=== PATIENT | male | born 1960 | race African-American/Black ===

== ENCOUNTER 2018-08-04 07:57 | Emergency (ER) | payer MEDICARE, MEDICAID ==
[~2018-08-04] VITALS: Ht 193 cm; Wt 80.0 kg
[~2018-08-04 07:57] MED LIST: AMLO2.5T45 PO; ATOR10TA PO; TRAM50TA3 PO
[2018-08-04] MEDS ORDERED: HYDROCODONE/ACETAMINOPHEN 5/325MG TABLET PO ONE (09:15)
[2018-08-04 10:33] VITALS: BP 131/92
== END 2018-08-04 10:35 | disposition home or self-care (01) ==
LOC: ER 09:48
DX: S80.02XA Contusion of left knee, initial encounter (principal); S90.32XA Contusion of left foot, initial encounter; J44.9 Chronic obstructive pulmonary disease, unspecified; I10 Essential (primary) hypertension; F17.200 Nicotine dependence, unspecified, uncomplicated; Z96.649 Presence of unspecified artificial hip joint; W18.39XA Other fall on same level, initial encounter; Y93.89 Activity, other specified; Y92.89 Other specified places as the place of occurrence of the external cause; Y99.8 Other external cause status; Z98.890 Other specified postprocedural states
CPT/HCPCS: 73700; 99284; L1830

== ENCOUNTER 2020-05-27 11:33 | Inpatient (IN) | payer MEDICARE, MEDICAID ==
[~2020-05-27] VITALS: Ht 195.6 cm; Wt 84.4 kg
[~2020-05-27 11:33] MED LIST changes: +ASPI-1160 PO; -ATOR10TA PO; +UMEC1DIS IH
[2020-05-27] MEDS ORDERED: MORPHINE SULFATE 4 MG/ML CPJ (NOT FOR IM USE) IV STA (12:13)
[2020-05-27] MEDS ORDERED: ONDANSETRON HCL 4MG/2ML INJ IV STA (12:13)
[2020-05-27] MEDS ORDERED: METRONIDAZOLE 500 MG PREMIX 100 ML IV ONE (14:00)
[2020-05-27] MEDS ORDERED: MORPHINE SULFATE 4 MG/ML CPJ (NOT FOR IM USE) IV ONE (14:00)
[2020-05-27] MEDS ORDERED: CEFTRIAXONE 2 G PREMIX 50 ML IV ONE (14:00)
[2020-05-27 14:22] LABS: BASOPHILS % 0.5 % (0.0-2.0); EOSINOPHILS % 0.8 % (0.0-5.0); HEMATOCRIT. 45.3 % (42.0-52.0); HEMOGLOBIN. 15.6 g/dL (14.0-18.0); LYMPHOCYTES % 16.3 % (20.0-50.0); MEAN CORPUSCULAR HEMOGLOBIN 35.9 pg (28.0-32.0); MEAN CORPUSCULAR VOLUME 104.4 fL (80.0-94.0); MEAN PLATELET VOLUME 6.8 fl (7.4-10.4); NEUTROPHILS % 71.4 % (40.0-76.0); PLATELET 444 x1000/uL (130-400); RED BLOOD CELL COUNT 4.34 mill/uL (4.7-6.1)
[2020-05-27 14:28] LABS: CHLORIDE 104 mEq/L (98-107)
[2020-05-27 14:30] LABS: INR 1.1; PROTHROMBIN TIME 11.5 sec (9.6-11.0)
[2020-05-27 15:13] LABS: CLARITY URINE CLEAR (CLEAR); COLOR URINE DARK YELLOW (YELLOW); KETONES URINE NEGATIVE (NEGATIVE); LEUKOCYTE ESTERASE URINE NEGATIVE (NEGATIVE); NITRITE URINE NEGATIVE (NEGATIVE); OCCULT BLOOD URINE NEGATIVE (NEGATIVE); PROTEIN URINE NEGATIVE (NEGATIVE); SPECIFIC GRAVITY URINE 1.029 (1.005-1.030)
[2020-05-27] MEDS ORDERED: ONDANSETRON HCL 4MG/2ML INJ IV PRN ×2 (15:45→18:30)
[2020-05-27] MEDS ORDERED: MORPHINE SULFATE 4 MG/ML CPJ (NOT FOR IM USE) IV PRN ×2 (15:45→19:15)
[2020-05-27] MEDS ORDERED: HYDROCODONE/ACETAMINOPHEN 5/325MG TABLET PO PRN (15:45)
[2020-05-27] MEDS ORDERED: MORPHINE SULFATE 2 MG/ML CPJ (NOT FOR IM USE) IV PRN ×3 (15:45→19:15)
[2020-05-27] MEDS ORDERED: ROCURONIUM BROMIDE 10MG/ML VIAL 5ML IV ONE (16:02)
[2020-05-27] MEDS ORDERED: FENTANYL CITRATE/PF 50MCG/ML 2ML VIAL ONE (16:02)
[2020-05-27] MEDS ORDERED: PROPOFOL 200MG/20ML VIAL IV ONE (16:03)
[2020-05-27] MEDS ORDERED: MIDAZOLAM HCL 2 MG/2 ML VIAL ONE (16:03)
[2020-05-27] MEDS ORDERED: LIDOCAINE HCL/PF 1% 10 MG/ML 5ML VIAL ONE (16:04)
[2020-05-27] MEDS ORDERED: METOCLOPRAMIDE HCL 10MG/2ML VIAL ONE (16:06)
[2020-05-27] MEDS ORDERED: ONDANSETRON HCL 4MG/2ML INJ ONE (16:06)
[2020-05-27] MEDS ORDERED: LORAZEPAM 2MG/ML CPJ IV PRN (16:15)
[2020-05-27] MEDS ORDERED: IPRATROPIUM/ALBUTEROL 0.5-3(2.5)MG/3ML NEB NEB PRN (16:15)
[2020-05-27] MEDS ORDERED: ACETAMINOPHEN 650MG SUPP PR PRN (16:15)
[2020-05-27] MEDS ORDERED: BUPIVACAINE HCL 0.5% (5MG/ML) 50ML ONE (16:35)
[2020-05-27] MEDS ORDERED: CEFAZOLIN SODIUM 1000MG/VIAL ONE (17:05)
[2020-05-27] MEDS ORDERED: GLYCOPYRROLATE 0.2 MG/ML 2ML VIAL ONE (17:06)
[2020-05-27] MEDS ORDERED: SKIN ADHESIVE 0.7 GM EA TOP ONE (17:46)
[2020-05-27] MEDS ORDERED: HYDROMORPHONE HCL/PF 2MG/ML CPJ ONE (18:25)
[2020-05-27] MEDS ORDERED: DIPHENHYDRAMINE 50MG/ML VIAL IV PRN (18:30)
[2020-05-27] MEDS: MEPERIDINE HCL/PF 25MG/ML CPJ IV PRN ×2 (18:30→18:54)
[2020-05-27] MEDS: HYDROMORPHONE HCL/PF 2MG/ML CPJ IV PRN ×4 (18:38→19:24)
[2020-05-27] MEDS ORDERED: DEXT 5%/0.45% NACL KCL 20MEQ/L 1,000 ML IV SCH (19:00)
[2020-05-27] MEDS ORDERED: LEVOFLOXACIN 500MG PREMIX 100 ML IV SCH (19:15)
[2020-05-27] MEDS ORDERED: MEPERIDINE HCL/PF 25MG/ML CPJ IV PRN ×2 (19:45)
[2020-05-27 20:00] VITALS: BP 138/85
[2020-05-27] MEDS: DIPHENHYDRAMINE 50MG/ML VIAL IV PRN (20:13)
[2020-05-27] MEDS: MORPHINE SULFATE 4 MG/ML CPJ (NOT FOR IM USE) IV PRN (22:28)
[2020-05-27] MEDS: DEXT 5%/0.45% NACL KCL 20MEQ/L 1,000 ML IV SCH (22:29)
[2020-05-28] VITALS (7 sets, daily range): BP systolic 108–146; BP diastolic 69–90
[2020-05-28] MEDS: PIPERACILLIN/TAZOBACTAM 3.375 G in DEXT 5% WATER 100 ML IV SCH ×5 (00:13→17:16)
[2020-05-28] MEDS: DEXT 5%/0.45% NACL KCL 20MEQ/L 1,000 ML IV SCH (00:14)
[2020-05-28 00:16] LABS: HEMATOCRIT. 42.2 % (42.0-52.0); HEMOGLOBIN. 14.3 g/dL (14.0-18.0); MEAN CORPUSCULAR HEMOGLOBIN 35.8 pg (28.0-32.0); MEAN CORPUSCULAR VOLUME 105.4 fL (80.0-94.0); MEAN PLATELET VOLUME 6.5 fl (7.4-10.4); PLATELET 395 x1000/uL (130-400)
[2020-05-28 00:24] LABS: PLATELET ESTIMATE NORMAL
[2020-05-28] MEDS: MORPHINE SULFATE 4 MG/ML CPJ (NOT FOR IM USE) IV PRN ×2 (00:53→04:07)
[2020-05-28] MEDS: DIPHENHYDRAMINE 50MG/ML VIAL IV PRN (02:43)
[2020-05-28 06:25] LABS: BASOPHILS % 0.2 % (0.0-2.0); HEMATOCRIT. 39.8 % (42.0-52.0); HEMOGLOBIN. 13.5 g/dL (14.0-18.0); LYMPHOCYTES % 11.3 % (20.0-50.0); MEAN CORPUSCULAR HEMOGLOBIN 35.5 pg (28.0-32.0); MEAN PLATELET VOLUME 6.9 fl (7.4-10.4); NEUTROPHILS % 81.5 % (40.0-76.0); PLATELET 392 x1000/uL (130-400); RED BLOOD CELL COUNT 3.79 mill/uL (4.7-6.1); RED CELL DISTRIBUTION WIDTH 12.8 % (11.6-14.6)
[2020-05-28 06:35] LABS: CHLORIDE 107 mEq/L (98-107)
[2020-05-28 06:52] LABS: T4 FREE 1.54 ng/dL (0.76-1.46)
[2020-05-28] MEDS ORDERED: HYDROMORPHONE HCL/PF 2MG/ML CPJ IV PRN (08:15)
[2020-05-28] MEDS ORDERED: ACETAMINOPHEN 325MG TABLET PO PRN (08:15)
[2020-05-28] MEDS: FAMOTIDINE 20MG/2ML VIAL IV SCH (09:04)
[2020-05-28] MEDS: ENOXAPARIN 40MG/0.4ML SYR SUBCUT SCH (09:04)
[2020-05-28] MEDS: HYDROMORPHONE HCL/PF 2MG/ML CPJ IV PRN ×2 (09:10→21:37)
[2020-05-28] MEDS: NICOTINE 7MG PATCH TD SCH (14:24)
[2020-05-28 18:12] LABS: CHLORIDE 102 mEq/L (98-107)
[2020-05-29] VITALS: BP 118/77
[2020-05-29] MEDS: PIPERACILLIN/TAZOBACTAM 3.375 G in DEXT 5% WATER 100 ML IV SCH ×4 (00:07→17:35)
[2020-05-29 04:00] VITALS: BP 103/65
[2020-05-29 06:30] LABS: *AMPHETAMINES SCREEN URINE NEGATIVE (NEGATIVE); *BARBITURATES SCREEN URINE NEGATIVE (NEGATIVE); *BENZODIAZEPINES SCREEN URINE PRESUMTIVE POSITIVE (NEGATIVE); *COCAINE SCREEN URINE NEGATIVE (NEGATIVE); METHADONE URINE SCREEN NEGATIVE (NEGATIVE); OPIATES URINE SCREEN PRESUMTIVE POSITIVE (NEGATIVE); PHENCYCLIDINE URINE SCREEN NEGATIVE (NEGATIVE)
[2020-05-29 06:31] LABS: CANNABINOID URINE SCREEN NEGATIVE (NEGATIVE)
[2020-05-29 06:56] LABS: BASOPHILS % 0.3 % (0.0-2.0); EOSINOPHILS % 1.4 % (0.0-5.0); HEMATOCRIT. 35.9 % (42.0-52.0); HEMOGLOBIN. 12.5 g/dL (14.0-18.0); LYMPHOCYTES % 16.6 % (20.0-50.0); MEAN CORPUSCULAR HEMOGLOBIN 36.5 pg (28.0-32.0); MEAN CORPUSCULAR VOLUME 104.7 fL (80.0-94.0); MEAN PLATELET VOLUME 6.8 fl (7.4-10.4); MONOCYTES % 7.7 % (2.0-8.0); PLATELET 375 x1000/uL (130-400); RED BLOOD CELL COUNT 3.43 mill/uL (4.7-6.1); RED CELL DISTRIBUTION WIDTH 12.7 % (11.6-14.6)
[2020-05-29 07:02] LABS: CHLORIDE 101 mEq/L (98-107)
[2020-05-29] MEDS: FAMOTIDINE 20MG/2ML VIAL IV SCH (09:01)
[2020-05-29] MEDS: NICOTINE 7MG PATCH TD SCH (09:01)
[2020-05-29] MEDS: ENOXAPARIN 40MG/0.4ML SYR SUBCUT SCH (09:01)
[2020-05-29] MEDS: HYDROMORPHONE HCL/PF 2MG/ML CPJ IV PRN ×3 (09:02→15:33)
[2020-05-29] MEDS: DEXT 5%/0.45% NACL KCL 20MEQ/L 1,000 ML IV SCH ×3 (12:08→21:54)
[2020-05-29 20:00] VITALS: BP 135/82
[2020-05-30] VITALS: BP 141/87
[2020-05-30] MEDS: PIPERACILLIN/TAZOBACTAM 3.375 G in DEXT 5% WATER 100 ML IV SCH ×5 (00:15→23:22)
[2020-05-30] MEDS: HYDROCODONE/ACETAMINOPHEN 5/325MG TABLET PO PRN ×2 (00:15→23:42)
[2020-05-30 04:53] VITALS: BP 140/89
[2020-05-30 05:45] LABS: CHLORIDE 104 mEq/L (98-107)
[2020-05-30 05:48] LABS: HEMATOCRIT. 37.7 % (42.0-52.0); HEMOGLOBIN. 13.1 g/dL (14.0-18.0); MEAN CORPUSCULAR VOLUME 103.5 fL (80.0-94.0); PLATELET 390 x1000/uL (130-400); RED BLOOD CELL COUNT 3.64 mill/uL (4.7-6.1); RED CELL DISTRIBUTION WIDTH 12.7 % (11.6-14.6)
[2020-05-30 05:54] LABS: PHOSPHORUS 1.9 mg/dL (2.5-4.9)
[2020-05-30] MEDS: HYDROMORPHONE HCL/PF 2MG/ML CPJ IV PRN ×4 (05:54→20:14)
[2020-05-30] MEDS: DEXT 5%/0.45% NACL KCL 20MEQ/L 1,000 ML IV SCH ×3 (08:00→23:49)
[2020-05-30] MEDS: NICOTINE 7MG PATCH TD SCH (08:56)
[2020-05-30] MEDS: ENOXAPARIN 40MG/0.4ML SYR SUBCUT SCH (08:56)
[2020-05-30] MEDS: FAMOTIDINE 20MG/2ML VIAL IV SCH (08:57)
[2020-05-30] MEDS ORDERED: HYDR-4001 MT ×2 (12:49→12:53)
[2020-05-30] MEDS ORDERED: LEVO500T2 MT (12:49)
[2020-05-30] MEDS ORDERED: AMOX1TAB16 MT (12:49)
[2020-05-30] MEDS ORDERED: BISACODYL 10MG SUPP PR NR (13:15)
[2020-05-30 14:52] LABS: PLATELET ESTIMATE NORMAL
[2020-05-30 20:00] VITALS: BP 146/95
[2020-05-30] MEDS: ONDANSETRON HCL 4MG/2ML INJ IV PRN (20:28)
[2020-05-31] VITALS: BP 144/98
[2020-05-31] MEDS: PIPERACILLIN/TAZOBACTAM 3.375 G in DEXT 5% WATER 100 ML IV SCH ×4 (06:09→23:23)
[2020-05-31 06:22] LABS: CHLORIDE 102 mEq/L (98-107)
[2020-05-31] MEDS: ONDANSETRON HCL 4MG/2ML INJ IV PRN ×2 (06:28→18:17)
[2020-05-31] MEDS: HYDROMORPHONE HCL/PF 2MG/ML CPJ IV PRN ×2 (06:29→20:10)
[2020-05-31 08:00] VITALS: BP 136/86
[2020-05-31] MEDS: ENOXAPARIN 40MG/0.4ML SYR SUBCUT SCH (09:00)
[2020-05-31] MEDS: NICOTINE 7MG PATCH TD SCH (09:00)
[2020-05-31] MEDS: FAMOTIDINE 20MG/2ML VIAL IV SCH (09:00)
[2020-05-31 12:00] VITALS: BP 147/90
[2020-05-31] MEDS: DEXT 5%/0.45% NACL 1000ML 1,000 ML IV SCH (12:24)
[2020-05-31 12:55] LABS: BASOPHILS % 0.4 % (0.0-2.0); EOSINOPHILS % 3.2 % (0.0-5.0); HEMATOCRIT. 37.4 % (42.0-52.0); HEMOGLOBIN. 12.9 g/dL (14.0-18.0); LYMPHOCYTES % 20.4 % (20.0-50.0); MEAN CORPUSCULAR HEMOGLOBIN 35.9 pg (28.0-32.0); MEAN CORPUSCULAR VOLUME 104.1 fL (80.0-94.0); MEAN PLATELET VOLUME 6.8 fl (7.4-10.4); MONOCYTES % 12.8 % (2.0-8.0); NEUTROPHILS % 63.2 % (40.0-76.0); PLATELET 452 x1000/uL (130-400); RED BLOOD CELL COUNT 3.59 mill/uL (4.7-6.1); RED CELL DISTRIBUTION WIDTH 12.6 % (11.6-14.6)
[2020-05-31 16:00] VITALS: BP 146/92
[2020-05-31] MEDS: HYDROCODONE/ACETAMINOPHEN 5/325MG TABLET PO PRN (18:05)
[2020-05-31 20:00] VITALS: BP 134/96
[2020-06-01] VITALS: BP 136/89
[2020-06-01 04:00] VITALS: BP 152/96
[2020-06-01] MEDS: PIPERACILLIN/TAZOBACTAM 3.375 G in DEXT 5% WATER 100 ML IV SCH ×2 (05:49→11:16)
[2020-06-01] MEDS: DEXT 5%/0.45% NACL 1000ML 1,000 ML IV SCH ×2 (05:52→21:23)
[2020-06-01] MEDS: HYDROMORPHONE HCL/PF 2MG/ML CPJ IV PRN ×5 (06:05→21:24)
[2020-06-01 07:07] LABS: BASOPHILS % 0.6 % (0.0-2.0); EOSINOPHILS % 4.1 % (0.0-5.0); HEMATOCRIT. 36.5 % (42.0-52.0); HEMOGLOBIN. 12.7 g/dL (14.0-18.0); LYMPHOCYTES % 23.7 % (20.0-50.0); MEAN CORPUSCULAR HEMOGLOBIN 35.8 pg (28.0-32.0); MEAN CORPUSCULAR VOLUME 103.1 fL (80.0-94.0); MEAN PLATELET VOLUME 6.8 fl (7.4-10.4); MONOCYTES % 13.6 % (2.0-8.0); PLATELET 479 x1000/uL (130-400); RED BLOOD CELL COUNT 3.54 mill/uL (4.7-6.1); RED CELL DISTRIBUTION WIDTH 12.6 % (11.6-14.6)
[2020-06-01 07:33] LABS: CHLORIDE 104 mEq/L (98-107)
[2020-06-01 08:00] VITALS: BP 145/92
[2020-06-01] MEDS: NICOTINE 7MG PATCH TD SCH (08:36)
[2020-06-01] MEDS: ENOXAPARIN 40MG/0.4ML SYR SUBCUT SCH (08:37)
[2020-06-01] MEDS: FAMOTIDINE 20MG/2ML VIAL IV SCH (08:37)
[2020-06-01 12:00] VITALS: BP 144/99
[2020-06-01 16:00] VITALS: BP 144/91
[2020-06-01 20:00] VITALS: BP 146/93
[2020-06-02] VITALS: BP 144/86
[2020-06-02 04:00] VITALS: BP 150/97
[2020-06-02] MEDS: DEXT 5%/0.45% NACL 1000ML 1,000 ML IV SCH ×3 (06:25→22:42)
[2020-06-02 07:38] LABS: BASOPHILS % 0.4 % (0.0-2.0); EOSINOPHILS % 2.3 % (0.0-5.0); HEMOGLOBIN. 12.6 g/dL (14.0-18.0); LYMPHOCYTES % 21.5 % (20.0-50.0); MEAN CORPUSCULAR HEMOGLOBIN 35.2 pg (28.0-32.0); MEAN CORPUSCULAR VOLUME 103.4 fL (80.0-94.0); MEAN PLATELET VOLUME 6.7 fl (7.4-10.4); MONOCYTES % 13.8 % (2.0-8.0); PLATELET 535 x1000/uL (130-400); RED BLOOD CELL COUNT 3.58 mill/uL (4.7-6.1); RED CELL DISTRIBUTION WIDTH 12.7 % (11.6-14.6)
[2020-06-02 08:00] VITALS: BP 145/91
[2020-06-02 08:16] LABS: CHLORIDE 102 mEq/L (98-107)
[2020-06-02] MEDS: ENOXAPARIN 40MG/0.4ML SYR SUBCUT SCH (08:34)
[2020-06-02] MEDS: NICOTINE 7MG PATCH TD SCH (08:35)
[2020-06-02] MEDS: FAMOTIDINE 20MG/2ML VIAL IV SCH (08:35)
[2020-06-02] MEDS: HYDROMORPHONE HCL/PF 2MG/ML CPJ IV PRN ×2 (09:47→17:29)
[2020-06-02 12:00] VITALS: BP 139/91
[2020-06-02 16:00] VITALS: BP 147/91
[2020-06-02 20:00] VITALS: BP 140/89
[2020-06-03] VITALS: BP 138/90
[2020-06-03 04:00] VITALS: BP 169/96
[2020-06-03] MEDS: HYDROMORPHONE HCL/PF 2MG/ML CPJ IV PRN ×2 (05:01→22:14)
[2020-06-03] MEDS: ONDANSETRON HCL 4MG/2ML INJ IV PRN ×2 (05:11→22:17)
[2020-06-03 06:26] LABS: BASOPHILS % 0.7 % (0.0-2.0); EOSINOPHILS % 1.4 % (0.0-5.0); HEMATOCRIT. 38.9 % (42.0-52.0); HEMOGLOBIN. 13.4 g/dL (14.0-18.0); LYMPHOCYTES % 21.5 % (20.0-50.0); MEAN CORPUSCULAR HEMOGLOBIN 35.5 pg (28.0-32.0); MEAN CORPUSCULAR VOLUME 102.6 fL (80.0-94.0); MEAN PLATELET VOLUME 6.6 fl (7.4-10.4); MONOCYTES % 11.7 % (2.0-8.0); NEUTROPHILS % 64.7 % (40.0-76.0); PLATELET 610 x1000/uL (130-400); RED BLOOD CELL COUNT 3.79 mill/uL (4.7-6.1); RED CELL DISTRIBUTION WIDTH 12.9 % (11.6-14.6)
[2020-06-03] MEDS: ENOXAPARIN 40MG/0.4ML SYR SUBCUT SCH (08:40)
[2020-06-03] MEDS: FAMOTIDINE 20MG/2ML VIAL IV SCH (08:40)
[2020-06-03] MEDS: NICOTINE 7MG PATCH TD SCH (08:40)
[2020-06-03] MEDS: DEXT 5%/0.45% NACL 1000ML 1,000 ML IV SCH (08:41)
[2020-06-03 12:00] VITALS: BP 134/91
[2020-06-03] MEDS: DEXT 5%/0.9% NACL 1,000 ML IV SCH (15:59)
[2020-06-03 16:00] VITALS: BP 145/95
[2020-06-03 20:00] VITALS: BP 125/88
[2020-06-04] VITALS: BP 141/87
[2020-06-04 04:00] VITALS: BP 125/57
[2020-06-04] MEDS: HYDROMORPHONE HCL/PF 2MG/ML CPJ IV PRN ×2 (04:28→16:22)
[2020-06-04] MEDS: DEXT 5%/0.9% NACL 1,000 ML IV SCH ×3 (04:29→20:56)
[2020-06-04] MEDS: ONDANSETRON HCL 4MG/2ML INJ IV PRN ×2 (04:32→16:22)
[2020-06-04 06:57] LABS: CHLORIDE 104 mEq/L (98-107)
[2020-06-04 06:58] LABS: BASOPHILS % 0.6 % (0.0-2.0); EOSINOPHILS % 2.2 % (0.0-5.0); HEMATOCRIT. 37.9 % (42.0-52.0); HEMOGLOBIN. 12.9 g/dL (14.0-18.0); LYMPHOCYTES % 30.3 % (20.0-50.0); MEAN CORPUSCULAR VOLUME 102.6 fL (80.0-94.0); MEAN PLATELET VOLUME 6.7 fl (7.4-10.4); MONOCYTES % 11.9 % (2.0-8.0); PLATELET 637 x1000/uL (130-400); RED BLOOD CELL COUNT 3.69 mill/uL (4.7-6.1)
[2020-06-04 07:05] LABS: PHOSPHORUS 3.4 mg/dL (2.5-4.9)
[2020-06-04 08:00] VITALS: BP 137/84
[2020-06-04] MEDS: ENOXAPARIN 40MG/0.4ML SYR SUBCUT SCH (08:48)
[2020-06-04] MEDS: NICOTINE 7MG PATCH TD SCH (08:48)
[2020-06-04] MEDS: FAMOTIDINE 20MG/2ML VIAL IV SCH (08:48)
[2020-06-04 12:00] VITALS: BP 148/88
[2020-06-04 16:00] VITALS: BP 141/88
[2020-06-04] MEDS ORDERED: BISACODYL 10MG SUPP PR NR (16:45)
[2020-06-04 20:00] VITALS: BP 138/96
[2020-06-05] VITALS: BP 142/90
[2020-06-05 04:00] VITALS: BP 131/83
[2020-06-05 04:54] LABS: CHLORIDE 104 mEq/L (98-107)
[2020-06-05 04:57] LABS: HEMATOCRIT. 37.1 % (42.0-52.0); HEMOGLOBIN. 12.7 g/dL (14.0-18.0); MEAN CORPUSCULAR HEMOGLOBIN 35.4 pg (28.0-32.0); MEAN CORPUSCULAR VOLUME 103.8 fL (80.0-94.0); MEAN PLATELET VOLUME 6.5 fl (7.4-10.4); PLATELET 603 x1000/uL (130-400); RED BLOOD CELL COUNT 3.58 mill/uL (4.7-6.1); RED CELL DISTRIBUTION WIDTH 12.8 % (11.6-14.6)
[2020-06-05] MEDS: DEXT 5%/0.9% NACL 1,000 ML IV SCH (06:36)
[2020-06-05 08:00] VITALS: BP 157/89
[2020-06-05] MEDS: ENOXAPARIN 40MG/0.4ML SYR SUBCUT SCH (08:35)
[2020-06-05] MEDS: NICOTINE 7MG PATCH TD SCH (08:35)
[2020-06-05] MEDS: FAMOTIDINE 20MG/2ML VIAL IV SCH (08:35)
[2020-06-05 11:48] VITALS: BP 133/92
[2020-06-05 12:00] VITALS: BP 133/92
[2020-06-05 17:54] LABS: PLATELET ESTIMATE INCREASED
== END 2020-06-05 13:02 | disposition home health service (06) | DRG 338 ==
LOC: ER 11:33 → OR 15:15 → 6EST 15:16 → ENRESERV 15:48
PROVIDERS: ADMIT Internal Medicine; ATTEND Internal Medicine
PROC: 0DJD4ZZ Inspection of Lower Intestinal Tract, Percutaneous Endoscopic Approach (ICD-10-PCS; principal; 2020-05-27)
PROC: 0DTJ0ZZ Resection of Appendix, Open Approach (ICD-10-PCS; 2020-05-27)
PROC: 0D9J00Z Drainage of Appendix with Drainage Device, Open Approach (ICD-10-PCS; 2020-05-27)
DX: K35.33 Acute appendicitis with perforation, localized peritonitis, and gangrene, with abscess (principal); I50.33 Acute on chronic diastolic (congestive) heart failure; J44.1 Chronic obstructive pulmonary disease with (acute) exacerbation; K56.7 Ileus, unspecified; D64.9 Anemia, unspecified; E83.51 Hypocalcemia; F17.210 Nicotine dependence, cigarettes, uncomplicated; I11.0 Hypertensive heart disease with heart failure; K42.9 Umbilical hernia without obstruction or gangrene; K74.60 Unspecified cirrhosis of liver; M51.36 Other intervertebral disc degeneration, lumbar region; E87.5 Hyperkalemia; K57.30 Diverticulosis of large intestine without perforation or abscess without bleeding; M48.061 Spinal stenosis, lumbar region without neurogenic claudication; Z96.643 Presence of artificial hip joint, bilateral; M19.90 Unspecified osteoarthritis, unspecified site; Z88.8 Allergy status to other drugs, medicaments and biological substances; Z79.82 Long term (current) use of aspirin; Z53.31 Laparoscopic surgical procedure converted to open procedure; Z79.899 Other long term (current) drug therapy
CPT/HCPCS: 36415; 71045; 74018; 74176; 80048; 80053; 80305; 81003; 83036; 83735; 84100; 84439; 84443; 85025; 86850; 86900; 88304; 93005; 93306; 96374; 99285; J0690; J1170; J1200; J1650; J2175; J2250; J2270; J2405; J2543; J2704; J2765; J3010; J3490; J7030; J7042; J7060

== ENCOUNTER 2021-05-27 04:12 | Emergency (ER) | payer MEDICARE ==
[~2021-05-27] VITALS: Ht 193 cm; Wt 84.6 kg
[~2021-05-27 04:12] MED LIST changes: +AMOX1TAB16 MT; -ASPI-1160 PO; +HYDR-4001 MT; +LEVO500T2 MT
[2021-05-27 04:51] LABS: BASOPHILS % 0.6 % (0.0-2.0); EOSINOPHILS % 1.4 % (0.0-5.0); HEMATOCRIT. 44.3 % (42.0-52.0); HEMOGLOBIN. 15.5 g/dL (14.0-18.0); LYMPHOCYTES % 49.1 % (20.0-50.0); MEAN CORPUSCULAR HEMOGLOBIN 37.4 pg (28.0-32.0); MEAN CORPUSCULAR VOLUME 106.7 fL (80.0-94.0); MEAN PLATELET VOLUME 7.3 fl (7.4-10.4); MONOCYTES % 10.9 % (2.0-8.0); PLATELET 303 x1000/uL (130-400); RED BLOOD CELL COUNT 4.15 mill/uL (4.7-6.1); RED CELL DISTRIBUTION WIDTH 15.1 % (11.6-14.6)
[2021-05-27 05:01] LABS: CHLORIDE 109 mEq/L (98-107)
[2021-05-27] MEDS ORDERED: MORPHINE SULFATE 4 MG/ML CPJ (NOT FOR IM USE) IV STA (06:14)
[2021-05-27] MEDS ORDERED: ONDANSETRON HCL 4MG/2ML INJ IV STA (06:14)
[2021-05-27] MEDS ORDERED: KETOROLAC 30MG/ML VIAL IV STA (06:14)
[2021-05-27 06:44] VITALS: BP 140/95
[2021-05-27] MEDS ORDERED: HYDR-4346 MT (07:23)
[2021-05-27] MEDS ORDERED: IBUP-2028 MT (07:23)
== END 2021-05-27 07:43 | disposition home or self-care (01) ==
LOC: ER 04:12
DX: M25.512 Pain in left shoulder (principal); M19.90 Unspecified osteoarthritis, unspecified site; I10 Essential (primary) hypertension; Z88.8 Allergy status to other drugs, medicaments and biological substances; Z96.649 Presence of unspecified artificial hip joint; Z98.890 Other specified postprocedural states
CPT/HCPCS: 36415; 70450; 71045; 72125; 73030; 80053; 83880; 84484; 85025; 93005; 96374; 96375; 99285; J1885; J2270; J2405; A4565